=== PATIENT | male | born 1945 | race Caucasian/White ===

== ENCOUNTER → 2017-09-09 | Outpatient (CLI) | payer OTHER, MEDICAID | LOC: FIMAGING 12:34 | PROVIDERS: ATTEND Neurological Surgery | DX: M50.323 Other cervical disc degeneration at C6-C7 level (principal); S13.1 Subluxation and dislocation of cervical vertebrae; S13.140D Subluxation of C3/C4 cervical vertebrae, subsequent encounter; M89.38 Hypertrophy of bone, other site ==

== ENCOUNTER → 2017-09-15 | Outpatient (CLI) | payer OTHER, MEDICAID | LOC: FIMAGING 15:03 | PROVIDERS: ATTEND Neurological Surgery | DX: M25.60 Stiffness of unspecified joint, not elsewhere classified (principal); M43.12 Spondylolisthesis, cervical region; M12.88 Other specific arthropathies, not elsewhere classified, other specified site ==